=== PATIENT | female | born 2000 | race Caucasian/White ===

== ENCOUNTER → 2020-06-19 | Outpatient (REF) | payer OTHER ==
[~2020-06-19] MED LIST: FLOM0.4C39 PO; IBUP1TAB7 PO; KETO10TAB PO
== END ==
LOC: M LAB REF 15:46
PROVIDERS: ATTEND Physician Assistant
DX: M54.5 Low back pain (principal)

== ENCOUNTER → 2020-06-19 | Outpatient (CLI) | payer OTHER ==
[2020-06-19 16:15] LABS: BASO % 0.4 % (0.0-1.0); EOS % 0.1 % (0.0-3.0); HEMATOCRIT 43.1 % (36.0-47.0); HEMOGLOBIN 13.7 g/dl (12.0-15.5); LYMPH # 0.6 10^3/uL (1.5-5.0); LYMPH % 5.5 % (24.0-44.0); MEAN CORPUSCULAR HEMOGLOBIN 31.1 pg (27.0-33.0); MEAN CORPUSCULAR HGB CONC 31.8 g/dl (32.0-36.5); MEAN CORPUSCULAR VOLUME 97.7 fl (80.0-96.0); MONO # 0.5 10^3/uL (0.0-0.8); MONO % 4.5 % (0.0-5.0); NEUTROPHILS # 9.8 10^3/uL (1.5-8.5); NEUTROPHILS % 89.1 % (36.0-66.0); PLATELET COUNT, AUTOMATED 164 10^3/uL (150-450); RED BLOOD COUNT 4.41 10^6/uL (4.00-5.40)
[2020-06-19 16:48] LABS: BLOOD UREA NITROGEN 15 MG/DL (7-18); CALCIUM LEVEL 9.4 MG/DL (8.5-10.1); CARBON DIOXIDE LEVEL 28 MEQ/L (21-32); CHLORIDE LEVEL 105 MEQ/L (98-107); GLOMERULAR FILTRATION RATE > 60.0 (>60); GLUCOSE, FASTING 127 MG/DL (70-100); POTASSIUM SERUM 3.8 MEQ/L (3.5-5.1); SODIUM LEVEL 139 MEQ/L (136-145)
--- NOTE | 2020-06-20 09:40 | REP ---
INDICATION: LOW BACK PAIN, HEMATURIA COMPARISON: None. TECHNIQUE: Supine view of the abdomen and pelvis. FINDINGS: There is a presumed 4 mm nonobstructing calculus overlying the lower pole left kidney. The bowel gas pattern is nonspecific. No organomegaly. Skeletal structures are intact. IMPRESSION: 4 mm nonobstructing left renal calculus suggested. <Electronically signed by Dimitri Medrano > 06/20/20 0937
== END ==
LOC: M WUC 11:20
PROVIDERS: ATTEND Physician Assistant
DX: N20.0 Calculus of kidney (principal); M54.5 Low back pain; R31.9 Hematuria, unspecified

== ENCOUNTER 2020-06-20 06:36 | Emergency (ER) | payer OTHER ==
[~2020-06-20] VITALS: Ht 157.5 cm; Wt 66.3 kg
--- OUTSIDE RECORDS SUMMARY | 2020-06-20 06:42 | CCD ---
Author Author [facility] Organization [facility] Address Unknown Phone Unavailable Care Team Providers Care Geological Drafter Name Role Phone MAGDA, YASIR PA Unavailable Unavailable MAGDA, YASIR PA Unavailable Unavailable MAGDA, YASIR PA Unavailable Unavailable MAGDA, YASIR PA Unavailable Unavailable MAGDA, YASRI PA Unavailable Unavailable MAGDA, YASIR PA Unavailable Unavailable MAGDA, YASIR PA Unavailable Unavailable MAGDA, YASIR PA Unavailable Unavailable MAGDA, YASIR PA Unavailable Unavailable MAGDA, YASIR PA Unavailable Unavailable MAGDA, YASIR PA Unavailable Unavailable MAGDA, YAISR PA Unavailable Unavailable MAGDA, YASIR PA Unavailable Unavailable MAGDA, YASIR PA Unavailable Unavailable MAGDA, YASIR PA Unavailable Unavailable MAGDA, YASIR PA Unavailable Unavailable MAGDA, YASIR PA Unavailable Unavailable MAGDA, YASIR PA Unavailable Unavailable MAGDA, YASIR PA Unavailable Unavailable MAGDA, YASIR PA Unavailable Unavailable MAGDA, YASIR PA Unavailable Unavailable MAGDA, YASIR PA Unavailable Unavailable MAGDA, YASIR PA Unavailable Unavailable MAGDA, YASIR PA Unavailable Unavailable MAGDA, YASIR PA Unavailable Unavailable MAGDA, YASIR PA Unavailable Unavailable MAGDA, YASIR PA Unavailable Unavailable MAGDA, YASIR PA Unavailable Unavailable MAGDA, YASIR PA Unavailable Unavailable MAGDA, YASIR PA Unavailable Unavailable MAGDA, YASIR PA Unavailable Unavailable MAGDA, YASIR PA Unavailable Unavailable MAGDA, YASIR PA Unavailable Unavailable MAGDA, YASIR PA Unavailable Unavailable MAGDA, YASIR PA Unavailable Unavailable MAGDA, YASIR PA Unavailable Unavailable MAGDA, YASIR PA Unavailable Unavailable MAGDA, YASIR PA Unavailable Unavailable Re-disclosure Warning The records that you are about to access may contain information from federally-assisted alcohol or drug abuse programs. If such information is present, then the following federally mandated warning applies: This information has been disclosed to you from records protected by federal confidentiality rules (42 CFR part 2). The federal rules prohibit you from making any further disclosure of this information unless further disclosure is expressly permitted by the written consent of the person to whom it pertains or as otherwise permitted by 42 CFR part 2. A general authorization for the release of medical or other information is NOT sufficient for this purpose. The Federal rules restrict any use of the information to criminally investigate or prosecute any alcohol or drug abuse patient.The records that you are about to access may contain highly sensitive health information, the redisclosure of which is protected by Article 27-F of the [facility] Public Health law. If you continue you may have access to information: Regarding HIV / AIDS; Provided by facilities licensed or operated by the [facility] Office of Mental Health; or Provided by the [facility] Office for People With Developmental Disabilities. If such information is present, then the following [facility] mandated warning applies: This information has been disclosed to you from confidential records which are protected by state law. State law prohibits you from making any further disclosure of this information without the specific written consent of the person to whom it pertains, or as otherwise permitted by law. Any unauthorized further disclosure in violation of state law may result in a fine or alf sentence or both. A general authorization for the release of medical or other information is NOT sufficient authorization for further disc losure. Allergies and Adverse Reactions Type Description Substance Reaction Status Data Source(s ) Sulfa (for allergy use only) Sulfa (for allergy use only) Sprague lfa (for allergy use only) "no idea" Active eCW1 ([facility]) Encounters Encounter Providers Location Date Indications Data Source(s ) Outpatient Attender: YASIR baez 06/19/2020 09:30:00 AM EST MEDENT ([facility], [facility]) [address] [address] 05/17/2019 12:00:00 AM EST eCW1 ([facility]) Medications Medication Brand Name Start Date Product Form Dose Route Admi nistrative Instructions Pharmacy Instructions Status Indications Reaction Description Data Source(s) Ibuprofen 800 MG Oral Tablet Ibuprofen 06/19/2020 12:00:00 AM EST ORAL active MEDENT ([facility], [facility]) Tamsulosin hydrochloride 0.4 MG Oral Capsule Tamsulosin HCL 06/19/2020 12:00:00 AM EST ORAL active MEDENT ([facility], [facility]) Ibuprofen 800 MG Oral Tablet Ibuprofen 800 MG 05/17/2019 12:00:[address] active 1 tablet with food or mil k as needed eCW1 ([facility]) Insurance Providers Payer name Policy type / Coverage type Policy ID Covered constitution party ID Covered constitution party's relationship to marsh Policy Marsh Plan Information [facility] ACTIVE DUTY [id number] Surgeries/Procedures Procedure Description Date Indications Data Source(s) Therapeutic, Prophylactic Or Diagnostic Injection Subq/Im 06/19/2020 12:00:00 AM EST MED[facility] ([facility], [facility]) Results ID Date Data Source [id number] 06/19/2020 11:13:00 AM EST MEDENT ([facility], [facility]) Name Value Range Interpretation Code Description Data Breanne rce(s) Supporting Document(s) Bacteria identified in Urine by Culture [facility], [facility]) Procedure Vital Signs ID Date Data Source UNK Name Value Range Interpretation Code Description Data Source(s) Body mass index (BMI) [Ratio] 26.0 kg/m2 26.0 k g/m2 MED[facility] ([facility], [facility]) Body height 62 [in_i] 62 [in_i] MEDENT ([facility], [facility]) 5'2" Body weight 142.00 [lb_av] 142.00 [lb_av] MEDEN T ([facility], [facility]) Body temperature 97.5 [degF] 97.5 [degF] MEDENT ([facility]) Oxygen saturation in Arterial blood by Pulse oximetry 98 % 98 % [facility] ([facility], [facility]) Respiratory rate 13 /min 13 /min [facility] ( [facility], [facility]) Heart rate 59 /min 59 /min MED[facility] ([facility], [facility]) Diastolic blood pressure 82 mm[Hg] 82 mm[Hg] [facility] ([facility]) Systolic blood pressure 117 mm[Hg] 117 mm[facility]Hg] [facility] Diastolic blood pressure 72 mm[Hg] 72 mm[Hg] eCW1 ([facility]) Systolic blood pressure 128 mm[Hg] 128 mm[Hg] e CW1 ([facility]) Body temperature 99.1 [degF] 99.1 [degF] eCW1 ( [facility]) Respiratory rate 16 /min 16 /min eCW1 ([facility]s include [facility] beds at [facility]) Heart rate 72 /min 72 /min eCW1 ([facility]) Body mass index (BMI) [Ratio] 29.08 kg/m2 29.08 kg/m2 eCW1 ([facility]) Body height 62 [in_us] 62 [in_us] eCW1 ([facility]) Body weight Measured 159 [lb_av] 159 [lb_av] eC W1 ([facility]) Patient Treatment Plan of Care Planned Activity Planned Date Details Description Data Source (s) Ibuprofen 800 MG Oral Tablet 05/17/2019 12:00:00 AM EST eCW1 ([facility])
--- OUTSIDE RECORDS SUMMARY | 2020-06-20 06:42 | CCD | Continuity of Care Document ---
Author Author [facility] Organization Unknown Address [address] [place] [id number] Phone [phone] Care Team Providers Care Human Intelligence Name Role Phone Demetrius Doe MD AUTM Unavailable [facility] AUTM Problems Description No Information Available Social History Type Date Description Comments Sex Unknown ETOH Use Occasionally consumes alcohol Tobacco Use Start: Unknown Patient has never smoked Tobacco Use Start: Unknown The patient has never vaped Smoking Status Reviewed: 06/19/20 The patient has never vaped Allergies, Adverse Reactions, Alerts Active Allergies Reaction Severity Comments Date Sulfa 06/19/2020 Medications Active Medications SIG Qnty Indications Ordering Provide r Date Tamsulosin HCL 0.4mg Capsules 1 capsule by mouth 30 minutes after supper everyday. 30caps N20.1 Thierno Evans JR., M.D. 06/19/2020 Ibuprofen 800mg Tablets 1 tab by mouth every 6-8 hours as needed for pain 30tabs N20.1 Thierno tyson JR., M.D. 06/19/2020 Advil last dose this morning Unknown 00 / Immunizations Description No Information Available Vital Signs Date Vital Result Comment 06/19/2020 10:53am BP Systolic 117 mmHg BP Diastolic 82 mmHg Heart Rate 59 /min Respiratory Rate 13 /min O2 % BldC Oximetry 98 % Body Temperature 97.5 F Weight 142.00 lb Height 62 inches 5'2" BMI (Body Mass Index) 26.0 kg/m2 Pain Level 7 Results Test Acquired Date Facility Test Result H/L Range Note Laboratory test finding 06/19/2020 [facility] [address], [place] [id number] [phone] Urine Culture <pending> Procedures Date Code Description Status 06/19/2020 92030 Therapeutic, Prophylactic Or Sepideh gnostic Injection Subq/Im Completed Medical Devices Description No Information Available Encounters Type Date Location Provider Dx Diagnosis Office Visit 06/19/2020 10:30a Main Office Ye Man, P.A. M5 4.5 Low back pain R31.9 Hematuria, unspecified N20.1 Calculus of ureter Assessments Date Code Description Provider 06/19/2020 M54.5 Low back pain Ye [place] e, P.A. 06/19/2020 R31.9 Hematuria, unspecified Ye Man, P.A. 06/19/2020 N20.1 Calculus of ureter Ye calrk, P.A. Plan of Treatment No Information Available Functional Status Description No Information Available Mental Status Description No Information Available Referrals Refer to Reason for Referral Status Appt Date [facility] [address] [place] [address]
--- OUTSIDE RECORDS SUMMARY | 2020-06-20 06:42 | CCD | Continuity of Care Document ---
Author Author [facility] Organization Unknown Address [address] [place] [address] Phone [phone] Care Team Providers Care Sports Marketing Coordinator Name Role Phone Demetrius Doe MD AUTM Unavailable [facility] AUTM Problems Description No Information Available [...] H/L Range Note Laboratory test finding 06/19/2020 [facility] [address] [place], [place] [id number] [phone] Urine Culture <pending> Procedures Date Code Description Status 06/19/2020 41543 Therapeutic, Prophylactic Or Sepideh gnostic Injection Subq/Im [...] P.A. 06/19/2020 N20.1 Calculus of ureter Ye clark, P.A. Plan of Treatment No Information Available Functional Status Description No Information Available Mental Status Description No Information Available Referrals Refer to Reason for Referral Status Appt Date [facility] [place] [address]
[2020-06-20] MEDS ORDERED: IBUP1TAB7 PO (06:45)
[2020-06-20] MEDS ORDERED: FLOM0.4C39 PO (06:47)
[2020-06-20] MEDS ORDERED: ONDANSETRON 4MG/2ML VIAL IV ONE (07:30)
[2020-06-20] MEDS ORDERED: NS 1,000 ML IV ONE (07:30)
[2020-06-20] MEDS ORDERED: MORPHINE 4 MG/ML 1ML VIAL/SYRINGE (J2270) IV ONE (07:30)
[2020-06-20 08:03] LABS: BASO % 0.3 % (0.0-1.0); EOS % 0.1 % (0.0-3.0); HEMATOCRIT 39.1 % (36.0-47.0); HEMOGLOBIN 12.9 g/dl (12.0-15.5); LYMPH # 0.9 10^3/uL (1.5-5.0); LYMPH % 12.6 % (24.0-44.0); MEAN CORPUSCULAR HEMOGLOBIN 30.9 pg (27.0-33.0); MEAN CORPUSCULAR VOLUME 93.8 fl (80.0-96.0); MONO # 0.5 10^3/uL (0.0-0.8); MONO % 6.8 % (0.0-5.0); NEUTROPHILS # 5.6 10^3/uL (1.5-8.5); NEUTROPHILS % 79.4 % (36.0-66.0); PLATELET COUNT, AUTOMATED 154 10^3/uL (150-450); RED BLOOD COUNT 4.17 10^6/uL (4.00-5.40); WHITE BLOOD COUNT 7.1 10^3/uL (4.0-10.0)
--- OUTSIDE RECORDS SUMMARY | 2020-06-20 08:19 | CCD ---
Author Author [facility] Organization [facility] Address Unknown Phone Unavailable Care Team Providers Care Textile Clothing And Footwear Mechanic Name Role Phone MAGDA, YASIR PA Unavailable [...] is protected by Article 27-F of the [facility] Public Health law. If you continue you may have access to information: Regarding HIV / AIDS; Provided by facilities licensed or operated by the [facility] Office of Mental Health; or Provided by the [facility] Office for People With Developmental Disabilities. If such information is present, then the following [facility] mandated warning applies: This information has been [...] law may result in a fine or [place] [facility] sentence or both. A general authorization for the release of medical or other information is NOT sufficient authorization for further disc losure. Allergies and Adverse Reactions Type Description Substance Reaction Status Data Source(s ) Sulfa (for allergy use only) Sulfa (for allergy use only) Sprague lfa (for allergy use only) "no idea" Active eCW1 ([facility]) Encounters Encounter Providers Location Date Indications Data Source(s ) Outpatient Attender: YASIR baez 06/19/2020 09:30:00 AM EST [facility] ([facility], [facility]) [address] [address] 05/17/2019 12:00:00 AM EST eCW1 ([facility]) Medications Medication Brand Name Start Date Product Form Dose Route Admi nistrative Instructions Pharmacy Instructions Status Indications Reaction Description Data Source(s) Ibuprofen 800 MG Oral Tablet Ibuprofen 06/19/2020 12:00:00 AM EST ORAL active [facility] ([facility], [facility]) Tamsulosin hydrochloride 0.4 MG Oral Capsule Tamsulosin HCL 06/19/2020 12:00:00 AM EST ORAL active [facility] ([facility], [facility]) Ibuprofen 800 MG Oral Tablet Ibuprofen 800 MG 05/17/2019 12:00:[address] active 1 tablet with food or mil k as needed eCW1 ([facility]) Insurance Providers Payer name Policy type / Coverage type Policy ID Covered republican ID Covered republican's relationship to marsh Policy Marsh Plan Information [facility] ACTIVE DUTY [id number] Surgeries/Procedures Procedure Description Date Indications Data Source(s) Therapeutic, Prophylactic Or Diagnostic Injection Subq/Im 06/19/2020 12:00:00 AM EST [facility] ([facility], [facility]) Results ID Date Data Source [id number] 06/19/2020 11:13:00 AM EST MED[facility] ([facility], [facility]) Name Value Range Interpretation Code Description Data Breanne rce(s) Supporting Document(s) Bacteria identified in Urine by Culture [facility] ([facility], [facility]) Procedure Vital Signs ID Date Data Source UNK Name Value Range Interpretation Code Description Data Source(s) Body mass index (BMI) [Ratio] 26.0 kg/m2 26.0 k g/m2 MED[facility] ([facility], [facility]) Body height 62 [in_i] 62 [in_i] [facility] ([facility], [facility]) 5'2" Body weight 142.00 [lb_av] 142.00 [lb_av] MEDEN T ([facility], [facility]) Body temperature 97.5 [degF] 97.5 [degF] MEDENT ([facility]) Oxygen saturation in Arterial blood by Pulse oximetry 98 % 98 % [facility] ([facility], [facility]) Respiratory rate 13 /min 13 /min [facility] ( [facility], [facility]) Heart rate 59 /min 59 /min [facility] ([facility], [facility]) Diastolic blood pressure 82 mm[Hg] 82 mm[Hg] [facility] ([facility]) Systolic blood pressure 117 mm[Hg] 117 mm[facility]Hg[facility], [facility]) Diastolic blood pressure 72 mm[Hg] 72 mm[Hg] eCW1 ([facility]) Systolic blood pressure 128 mm[Hg] 128 mm[Hg] e CW1 ([facility]) Body temperature 99.1 [degF] 99.1 [degF] eCW1 ( [facility]) Respiratory rate 16 /min 16 /min eCW1 ([facility]) Heart rate 72 /min 72 /min eCW1 ([facility]) Body mass index (BMI) [Ratio] 29.08 kg/m2 29.08 kg/m2 eCW1 ([facility]) Body height 62 [in_us] 62 [in_us] eCW1 ([facility]) Body weight Measured 159 [lb_av] 159 [lb_av] eC W1 ([facility]) Patient Treatment Plan of Care Planned Activity Planned Date Details Description Data Source (s) Ibuprofen 800 MG Oral Tablet 05/17/2019 12:00:00 AM EST eCW1 ([facility])
--- NOTE | 2020-06-20 08:33 | REP ---
INDICATION: L flank pain, h/o kidney stone COMPARISON: 05/22/2019 TECHNIQUE: Real time stout scale and color B-mode ultrasound examination using curved array transducer. FINDINGS: Right kidney is normal in appearance and reniform shape without hydronephrosis measuring 10.5 x 5.1 x 4.7 cm. Left kidney measures 11.6 x 4.4 x 6.4 cm and demonstrates mild/moderate hydronephrosis along with 5 mm nonobstructing intrarenal calculus. Bladder is collapsed. IMPRESSION: 1. Moderate left-sided hydronephrosis along with 5 mm nonobstructing left renal calculus. Correlation is recommended as obstructing ureteral calculus cannot be excluded. 2. Normal right kidney. <Electronically signed by Dimitri Medrano > 06/20/20 [id number]
[2020-06-20 08:56] LABS: ALBUMIN 4.2 GM/DL (3.2-5.2); ALT/SGPT 22 U/L (12-78); AMYLASE 27 U/L (25-115); BILIRUBIN,DIRECT < 0.1 MG/DL (0.0-0.2); BILIRUBIN,TOTAL 0.4 MG/DL (0.2-1.0); BLOOD UREA NITROGEN 16 MG/DL (7-18); CALCIUM LEVEL 9.3 MG/DL (8.5-10.1); CARBON DIOXIDE LEVEL 27 MEQ/L (21-32); CHLORIDE LEVEL 105 MEQ/L (98-107); CREATININE FOR GFR 0.91 MG/DL (0.55-1.30); GLOMERULAR FILTRATION RATE > 60.0 (>60); GLUCOSE, FASTING 89 MG/DL (70-100); LIPASE 41 U/L (73-393); POTASSIUM SERUM 4.5 MEQ/L (3.5-5.1); SODIUM LEVEL 141 MEQ/L (136-145); TOTAL PROTEIN 7.5 GM/DL (6.4-8.2)
[2020-06-20] MEDS ORDERED: KETO10TAB PO (09:13)
[2020-06-20 09:28] VITALS: BP 118/55
== END 2020-06-20 09:31 | disposition home or self-care (01) ==
LOC: M ED 06:36
DX: N20.0 Calculus of kidney (principal); N13.30 Unspecified hydronephrosis; Z79.899 Other long term (current) drug therapy; Z88.2 Allergy status to sulfonamides; Z87.442 Personal history of urinary calculi
CPT/HCPCS: 76775; 80048; 80076; 81001; 82150; 83690; 84702; 85025; 96374; 96375; 99284; J2270; J2405

== ENCOUNTER → 2020-09-09 | Outpatient (CLI) | payer BC ==
--- NOTE | 2020-09-09 09:16 | REP ---
INDICATION: POSITIVE TEST, DATING/VIABILITY COMPARISON: None. TECHNIQUE: Transabdominal 1st trimester obstetrical ultrasound with color Doppler evaluation. FINDINGS: Single live early intrauterine is appreciated. Gestational sac with pole identified. Sabin-rump length of 8 mm corresponds to 6 weeks 5 days gestational age with estimated date of delivery 04/30/2021. heart rate equals 122 beats per minute. No gross abnormalities are identified. IMPRESSION: Single live early intrauterine at 6 weeks 5 days gestational age. Complete anatomical assessment should be performed and 19-20 weeks. <Electronically signed by Dimitri Medrano > 09/09/20 [id number]
== END ==
LOC: M RAD 08:33
PROVIDERS: ATTEND Physician Assistant Medical
DX: Z32.01 Encounter for pregnancy test, result positive (principal)